=== PATIENT | female | born 1950 | race Caucasian/White ===

== ENCOUNTER → 2016-08-31 | Outpatient (CLI) | payer MEDICARE, OTHER ==
--- NOTE | 2016-09-02 10:14 | MM ---
Reason for exam: screening (asymptomatic). Last mammogram was performed 1 year and 1 month ago. History: Patient is postmenopausal and has history of colon cancer at age 57. Family history of breast cancer in maternal aunt, breast cancer in 2 maternal cousins, breast cancer in mother at age 70, and breast cancer in grandmother at age 70. Took hormonal contraceptives for 10 years. Took estrogen for 14 years. Took progesterone for 14 years. Physical Findings: A clinical breast exam by your physician is recommended on an annual basis and results should be correlated with mammographic findings. MG 3D Screening Mammo W/Cad Bilateral CC and MLO view(s) were taken. Prior study comparison: July 25, 2015, bilateral MG screening mammo w CAD. June 07, 2014, bilateral MG screening mammo w CAD. June 06, 2013, bilateral digital screening mammo w/CAD. There are scattered fibroglandular densities. There is chronic nodularity in the right breast. No significant changes when compared with prior studies. ASSESSMENT: Negative, BI-RAD 1 RECOMMENDATION: Routine screening mammogram of both breasts in 1 year.
== END | disposition home or self-care (01) ==
LOC: RADMAMWWP 12:51
PROVIDERS: ATTEND Internal Medicine
DX: Z12.31 Encounter for screening mammogram for malignant neoplasm of breast (principal)
CPT/HCPCS: 77063; G0202

== ENCOUNTER → 2017-10-21 | Outpatient (CLI) | payer MEDICARE, OTHER ==
--- NOTE | 2017-10-22 11:50 | MM ---
Reason for exam: screening (asymptomatic). Last mammogram was performed 1 year and 2 months ago. History: Patient is postmenopausal and has history of colon cancer at age 57. Family history of breast cancer in maternal aunt, breast cancer in 2 maternal cousins, breast cancer in mother at age 70, and breast cancer in grandmother at age 70. Took hormonal contraceptives for 10 years. Took estrogen for 14 years. Took progesterone for 14 years. Physical Findings: A clinical breast exam by your physician is recommended on an annual basis and results should be correlated with mammographic findings. MG 3D Screening Mammo W/Cad Bilateral CC and MLO view(s) were taken. Prior study comparison: August 31, 2016, bilateral MG 3d screening mammo w/cad. July 25, 2015, bilateral MG screening mammo w CAD. There are scattered fibroglandular densities. No suspicious abnormality. No significant changes when compared with prior studies. ASSESSMENT: Negative, BI-RAD 1 RECOMMENDATION: Routine screening mammogram of both breasts in 1 year.
== END ==
LOC: RADMAMWWP 12:52
PROVIDERS: ATTEND Internal Medicine
DX: Z12.31 Encounter for screening mammogram for malignant neoplasm of breast (principal)
CPT/HCPCS: 77063; 77067

== ENCOUNTER 2018-01-07 08:21 | Day surgery (SDC) | payer MEDICARE, OTHER ==
[2018-01-04 14:45] VITALS: BMI 25.3
[~2018-01-07 08:21] MED LIST: LACTATED RINGERS 1,000 ML IV SCH; LIDOCAINE 1% 20 ML VIAL (10MG/ML) FOR IV START INTRADERMA PRN
[2018-01-07 08:39] VITALS: TEMP 98.3
[2018-01-07] MEDS ORDERED: LACTATED RINGERS 1,000 ML IV ONE (08:44)
[2018-01-07] MEDS ORDERED: PROPOFOL 10 MG/ML 20 ML VIAL IV ONE (08:47)
[2018-01-07] MEDS ORDERED: LIDOCAINE 1% INJ 10MG/ML (20 ML MDV) ONE (08:47)
--- NOTE | 2018-01-07 08:52 | P.GSHP ---
History of Present Illness H&P Date: 01/07/18 Chief Complaint: Colon cancer screening Patient here today for colonoscopy. She has a history of colon cancer in the sigmoid colon 2006. Doing well now. No bowel complaints. Past Medical History Past Medical History: Cancer, Hyperlipidemia, Osteoarthritis (OA), Rheumatoid Arthritis (RA), Skin Disorder Additional Past Medical History / Comment(s): hx colon cancer, hx non hodgkins lymphome, eczema, History of Any Multi-Drug Resistant Organisms: None Reported Past Surgical History: Bowel Resection Additional Past Surgical History / Comment(s): colectomy, lipoma removed from top of rt shoulder, rx axillay lump biopsy, Past Anesthesia/Blood Transfusion Reactions: No Reported Reaction Smoking Status: Never smoker - Past Family History Mother Family Medical History: Cancer Additional Family Medical History / Comment(s): breast Father Family Medical History: Cancer Medications and Allergies Home Medications Medication Instructions Recorded Confirmed Type Atorvastatin [Lipitor] 40 mg PO DAILY 01/04/18 01/07/18 History Cetirizine HCl [Zyrtec] 10 mg PO DAILY 01/04/18 01/07/18 History Ergocalciferol (Vitamin D2) 50,000 unit PO SA 01/04/18 01/07/18 History [Vitamin D2] Folic Acid 1 mg PO DAILY 01/04/18 01/07/18 History Glucosam/Farshad-Msm1/C/Darion/Bosw 2 each PO DAILY 01/04/18 01/07/18 History [Glucosamine-Chondroitin Tablet] Meloxicam [Mobic] 7.5 mg PO DAILY 01/04/18 01/07/18 History Multivitamins, Thera [Multivitamin 1 tab PO DAILY 01/04/18 01/07/18 History (formulary)] Allergies Allergy/AdvReac Type Severity Reaction Status Date / Time Penicillins Allergy Rash/Hives Verified 01/07/18 08:41 Surgical - Exam Vital Signs Temp Pulse Resp BP Pulse Ox 98.3 F 93 18 146/98 98 01/07/18 08:38 01/07/18 08:38 01/07/18 08:38 01/07/18 08:38 01/07/18 08:38 Physical exam: General: Well-developed, well-nourished HEENT: Normocephalic, sclerae nonicteric Abdomen: Nontender, nondistended Extremities: No edema Neuro: Alert and oriented Assessment and Plan (1) Colon cancer screening Narrative/Plan: Will proceed with colonoscopy at this time Current Visit: Yes Status: Acute Code(s): Z12.11 - ENCOUNTER FOR SCREENING FOR MALIGNANT NEOPLASM OF COLON SNOMED Code(s): 942220098
--- NOTE | 2018-01-07 09:09 | P.PCN ---
Date of Procedure: 01/07/18 Procedure(s) Performed: PREOPERATIVE DIAGNOSIS: Colon cancer screening, personal history of colon cancer POSTOPERATIVE DIAGNOSIS: Descending colon polyp PROCEDURE: Colonoscopy with biopsy ANESTHESIA: MAC SURGEON: Piero Mcgill M.D. SPECIMENS: Descending colon polyp ENDOSCOPIC PROCEDURE: The patient was placed on the endoscopy table in the left decubitus position. The Olympus colonoscope was inserted into the anus and passed under direct visualization to the base of the cecum. The appendiceal orifice was visualized. From that point the scope was slowly withdrawn inspecting all surfaces carefully. There were no neoplastic inflammatory or polypoid lesions throughout the cecum, ascending, and transverse colon. In the descending colon there was noted be a small polyp that was removed using the cold biopsy forceps. The anastomosis between the descending colon and rectum was widely patent. No additional abnormalities were identified. There was no visible diverticulosis. Digital rectal examination was normal. The patient was taken to the recovery room in stable condition per anesthesia guidelines. RECOMMENDATIONS: Biopsy results. Follow-up colonoscopy in 5 years.
[2018-01-07 09:12] VITALS: RESP 16
[2018-01-07 09:26] VITALS: BP 120/78; PULSE 80
== END 2018-01-07 09:53 | disposition home or self-care (01) ==
LOC: ORWHC2ENDO 08:21
PROVIDERS: ATTEND Surgery
DX: Z12.11 Encounter for screening for malignant neoplasm of colon (principal); D12.4 Benign neoplasm of descending colon; Z85.038 Personal history of other malignant neoplasm of large intestine; E78.5 Hyperlipidemia, unspecified; M06.9 Rheumatoid arthritis, unspecified; Z85.72 Personal history of non-Hodgkin lymphomas; L30.9 Dermatitis, unspecified; Z79.82 Long term (current) use of aspirin; Z79.1 Long term (current) use of non-steroidal anti-inflammatories (NSAID); Z79.899 Other long term (current) drug therapy; Z87.891 Personal history of nicotine dependence; Z88.0 Allergy status to penicillin; Z88.8 Allergy status to other drugs, medicaments and biological substances
CPT/HCPCS: 88305; 45380; J2001; J2704

== ENCOUNTER → 2018-11-08 | Outpatient (CLI) | payer MEDICARE, OTHER ==
--- NOTE | 2018-11-09 14:55 | MM ---
Reason for exam: screening (asymptomatic). Last mammogram was performed 1 year and 1 month ago. History: Patient is postmenopausal, has history of colon cancer at age 57, and has history of other cancer at age 35. Family history of breast cancer in mother, breast cancer in maternal grandmother at age 70, breast cancer in maternal aunt, and breast cancer in 2 maternal cousins. Took hormonal contraceptives for 10 years. Took estrogen for 14 years. Took progesterone for 14 years. MG 3D Screening Mammo W/Cad Bilateral CC and MLO view(s) were taken. Prior study comparison: October 21, 2017, bilateral MG 3d screening mammo w/cad. August 31, 2016, bilateral MG 3d screening mammo w/cad. There are scattered fibroglandular densities. No suspicious abnormality. No significant new finding when compared with prior studies. ASSESSMENT: Negative, BI-RAD 1 RECOMMENDATION: Routine screening mammogram of both breasts in 1 year.
== END | disposition home or self-care (01) ==
LOC: RADMAMWWP 14:20
PROVIDERS: ATTEND Internal Medicine
DX: Z12.31 Encounter for screening mammogram for malignant neoplasm of breast (principal)
CPT/HCPCS: 77063; 77067

== ENCOUNTER → 2020-04-19 | Outpatient (CLI) | payer MEDICARE, OTHER ==
--- NOTE | 2020-04-22 09:30 | MM ---
Reason for exam: screening (asymptomatic). Last mammogram was performed 1 year and 5 months ago. History: Patient is postmenopausal, has history of colon cancer at age 57, and has history of other cancer at age 35. Family history of breast cancer in mother, breast cancer in maternal grandmother at age 70, breast cancer in maternal aunt, and breast cancer in 2 maternal cousins. Took hormonal contraceptives for 10 years. Took estrogen for 14 years. Took progesterone for 14 years. Physical Findings: A clinical breast exam by your physician is recommended on an annual basis and results should be correlated with mammographic findings. MG 3D Screening Mammo W/Cad Bilateral CC and MLO view(s) were taken. Prior study comparison: November 08, 2018, bilateral MG 3d screening mammo w/cad. October 21, 2017, bilateral MG 3d screening mammo w/cad. There are scattered fibroglandular densities. There is no discrete abnormality. ASSESSMENT: Negative, BI-RAD 1 RECOMMENDATION: Routine screening mammogram of both breasts in 1 year.
== END | disposition home or self-care (01) ==
LOC: RADMAMWWP 10:24
PROVIDERS: ATTEND Internal Medicine
DX: Z12.31 Encounter for screening mammogram for malignant neoplasm of breast (principal)
CPT/HCPCS: 77063; 77067

== ENCOUNTER → 2021-04-04 | Outpatient (CLI) | payer MEDICARE, OTHER ==
--- NOTE | 2021-04-04 10:59 | BD ---
EXAMINATION TYPE: Axial Bone Density DATE OF EXAM: 04/04/2021 COMPARISON: 08/19/2010 CLINICAL HISTORY: Height: 67 IN Weight: 183 LBS FRAX RISK QUESTIONS: Secondary Osteoporosis: 3. Menopause before 45: AGE 36 DUE TO CHEMO AND CANCER Rheumatoid Arthritis: YES RISK FACTORS HISTORY OF: Family History of Osteoporosis: YES MOTHER,GRANDMOTHER, AUNT, SELF Active: YES Postmenopausal woman: AGE 36 DUE TO CHEMO AND CANCER Take estrogen and/or progesterone medications: NOT NOW How long: TOOK FOR 10 YEARS MEDICATIONS: Additional Medications: MULTI VIT, FOLIC ACID, MALOXICAM, ARTHRITIS MEDS, CHOLESTEROL MEDS, VERTIGO M EDS, TYLENOL,LORATADINE Additional History: PT HAD NON-HODGKIN'S LYMPHOMA WITH CHEMO AND COLON CANCER WITH CHEMO EXAM MEASUREMENTS: Bone mineral densitometry was performed using the [employer] (now [employer] System. Bone mineral density as measured about the Lumbar spine is: ----- L1-L4(G/cm2): 1.543 T Score Values are as follows: ----- L2: 2.8 ----- L3: 2.4 ----- L4: 4.0 ----- L1-L4: 3.0 Bone mineral density has: Increased 9.6% since study of: 08/19/2010 Bone mineral density about the R hip (g/cm2): 0.868 Bone mineral density about the L hip (g/cm2): 0.940 T Score values are as follows: -----R Neck: -1.2 -----L Neck: -0.7 -----R Total: -1.2 -----L Total: -1.2 Bone mineral density has: Decreased -1.3% since study of: 08/19/2010 IMPRESSION: Osteopenia (T Score between -2.5 and -1) remains present. There remains slightly increased risk of fracture and the patient may be considered for treatment. Re-Screen 2-5 years. NOTE: T-SCORE=SD OF THE YOUNG ADULT MEAN.
== END | disposition home or self-care (01) ==
LOC: RADBDWWP 09:01
PROVIDERS: ATTEND Internal Medicine
DX: M85.89 Other specified disorders of bone density and structure, multiple sites (principal)
CPT/HCPCS: 77080

== ENCOUNTER 2021-05-06 10:26 | Emergency (ER) | payer MEDICARE, OTHER ==
--- NOTE | 2021-05-06 11:33 | XR ---
EXAMINATION TYPE: XR ankle complete RT DATE OF EXAM: 05/06/2021 COMPARISON: NONE HISTORY: 71-year-old female pain after fall TECHNIQUE: 3 views FINDINGS: Transverse fracture from the inferior tip of the medial malleolus distracted by 2 mm. Oblique fractur e distal fibula with minimal posterior displacement of 2 mm on the lateral view. Talar dome appears i ntact. Circumferential soft tissue swelling greatest anteriorly and laterally. Moderate-sized plantar heel spur. Subtalar joint is aligned. Smooth delineation to the Achilles tendon. Some degenerative s purring along the dorsal midfoot. IMPRESSION: Acute bimalleolar ankle fractures and soft tissue swelling.
--- NOTE | 2021-05-06 14:28 | ED ---
General Adult HPI - General Chief complaint: Extremity Injury, Lower Stated complaint: Fall/Rt ankle injury Time Seen by Provider: 05/06/21 12:40 Source: patient, RN notes reviewed Mode of arrival: wheelchair Limitations: no limitations - History of Present Illness Initial comments: 71-year-old female presents to the emergency room for a chief complaint of right ankle pain. Patient was walking down some snow we stairs to get her dog when she fell and inverted the ankle. Patient states it hurts to walk on. She did not hit her head or sustain other injuries. She does not take blood thinners. Patient does have a low-grade temperature of 100.5 noted on triage. She denies any symptoms related to this. Denies cough congestion. Has not had any fevers at home.Patient has no other complaints at this time including shortness of breath, chest pain, abdominal pain, nausea or vomiting, headache, or visual changes. - Related Data Home Medications Medication Instructions Recorded Confirmed Atorvastatin [Lipitor] 40 mg PO DAILY 01/04/18 05/06/21 Folic Acid 1 mg PO DAILY 01/04/18 05/06/21 Meloxicam [Mobic] 7.5 mg PO DAILY 01/04/18 05/06/21 Acetaminophen [Tylenol] 1,000 mg PO Q6H PRN 05/06/21 05/06/21 Ergocalciferol [Vitamin D2 (1250 1,250 mcg PO Q30D 05/06/21 05/06/21 Mcg = 44577 Iu)] Loratadine 10 mg PO DAILY 05/06/21 05/06/21 Meclizine [Antivert] 25 mg PO TID PRN 05/06/21 05/06/21 Allergies Allergy/AdvReac Type Severity Reaction Status Date / Time Penicillins Allergy Rash/Hives Verified 05/06/21 14:20 Review of Systems ROS Statement: Those systems with pertinent positive or pertinent negative responses have been documented in the HPI. ROS Other: All systems not noted in ROS Statement are negative. Past Medical History Past Medical History: Cancer, Hyperlipidemia, Osteoarthritis (OA), Rheumatoid Arthritis (RA), Skin Disorder Additional Past Medical History / Comment(s): hx colon cancer, hx non hodgkins lymphome, eczema, History of Any Multi-Drug Resistant Organisms: None Reported Past Surgical History: Bowel Resection Additional Past Surgical History / Comment(s): colectomy, lipoma removed from top of rt shoulder, rx axillay lump biopsy, Past Anesthesia/Blood Transfusion Reactions: No Reported Reaction Past Psychological History: No Psychological Hx Reported Smoking Status: Never smoker Past Alcohol Use History: Occasional Past Drug Use History: None Reported - Past Family History Mother Family Medical History: Cancer Additional Family Medical History / Comment(s): breast Father Family Medical History: Cancer General Exam Limitations: no limitations General appearance: alert, in no apparent distress Head exam: Present: atraumatic Eye exam: Present: normal appearance, PERRL, EOMI. Absent: scleral icterus, conjunctival injection, nystagmus ENT exam: Present: normal exam, mucous membranes moist Neck exam: Present: normal inspection, full ROM. Absent: tenderness Respiratory exam: Present: normal lung sounds bilaterally. Absent: respiratory distress, wheezes Cardiovascular Exam: Present: regular rate, normal rhythm, normal heart sounds Extremities exam: Present: tenderness (Tenderness noted to the medial and lateral malleolus. No foot tenderness.), normal capillary refill (Capillary refill less than 2 seconds, DP pulse 2+.), joint swelling (Mild edema noted of the right ankle.), other (Sensation intact right lower extremity.). Absent: calf tenderness Course Vital Signs 05/06/21 11:00 Temperature 100.5 F H Pulse Rate 101 H Respiratory 20 Rate Blood Pressure 156/89 O2 Sat by Pulse 96 Oximetry Procedures - Orthopedic Splinting/Casting Injury #1 Side: right Lower Extremity Injury Location: short leg Lower Extremity Immobilizer: posterior splint, stirrup splint Other Orthopedic Equipment: crutches Additional Comments: Neurovascular status intact after splint applied. Medical Decision Making - Medical Decision Making Vitals are stable. Mild temperature of 100.5. COVID-19 negative. Patient does not wish any other workup be performed for fever, she will watch this at home. Ankle x-ray reveals an acute bimalleolar ankle fracture and soft tissue swelling. Patient was placed in a posterior and stirrup splint and given crutches. Patient will be sent home with Tylenol 3. She will follow up with her doctor who works [facility]. She will return here for any worsening symptoms. - Lab Data Lab Results 05/06/21 Range/Units 12:58 Coronavirus (PCR) Not Detected (Not Detectd) Disposition Clinical Impression: Bimalleolar ankle fracture Disposition: HOME SELF-CARE Condition: Good Instructions (If sedation given, give patient instructions): Ankle Fracture (ED) Additional Instructions: Please take Tylenol 3 as needed for pain. Remain nonweightbearing and use crutches. Follow-up with your doctor. Return to the emergency room for any worsening symptoms. Is patient prescribed a controlled substance at d/c from ED?: No Referrals: Emily Tanner MD [Primary Care Provider] - 1-2 days Henry Mcallister DO [Doctor of Osteopathic Medicine] - 1-2 days Time of Disposition: 14:27
[2021-05-06 14:54] VITALS: BP 156/98; PULSE 107; RESP 18; TEMP 98.6
[2021-05-06] MEDS ORDERED: ACET/COD 300 MG/30 MG STARTER PACK 6 TAB BTL PO STA (14:57)
== END 2021-05-06 15:00 | disposition home or self-care (01) ==
LOC: EC 10:26
DX: S82.841A Displaced bimalleolar fracture of right lower leg, initial encounter for closed fracture (principal); W10.8XXA Fall (on) (from) other stairs and steps, initial encounter; Z88.0 Allergy status to penicillin; E78.5 Hyperlipidemia, unspecified; M19.90 Unspecified osteoarthritis, unspecified site; Z85.038 Personal history of other malignant neoplasm of large intestine
CPT/HCPCS: 29515; 87635; 99283

== ENCOUNTER → 2021-08-13 | Outpatient (CLI) | payer MEDICARE, OTHER ==
--- NOTE | 2021-08-15 11:42 | MM ---
Reason for exam: screening (asymptomatic). Last mammogram was performed 1 year and 4 months ago. History: Patient is postmenopausal, has history of colon cancer at age 57, and has history of other cancer at age 35. Family history of breast cancer in mother, breast cancer in maternal grandmother at age 70, breast cancer in maternal aunt, and breast cancer in 2 maternal cousins. Took hormonal contraceptives for 10 years. Took estrogen for 14 years. Took progesterone for 14 years. Physical Findings: A clinical breast exam by your physician is recommended on an annual basis and results should be correlated with mammographic findings. MG 3D Screening Mammo W/Cad Bilateral CC and MLO view(s) were taken. XCCL view(s) were taken of the left breast. Prior study comparison: April 19, 2020, bilateral MG 3d screening mammo w/cad. November 08, 2018, bilateral MG 3d screening mammo w/cad. There are scattered fibroglandular densities. There is no discrete abnormality. ASSESSMENT: Negative, BI-RAD 1 RECOMMENDATION: Routine screening mammogram of both breasts in 1 year.
== END | disposition home or self-care (01) ==
LOC: RADMAMWWP 15:23
PROVIDERS: ATTEND Internal Medicine
DX: Z12.31 Encounter for screening mammogram for malignant neoplasm of breast (principal); Z78.0 Asymptomatic menopausal state; Z80.3 Family history of malignant neoplasm of breast; Z85.038 Personal history of other malignant neoplasm of large intestine
CPT/HCPCS: 77063; 77067

== ENCOUNTER → 2021-08-19 | Outpatient (CLI) | payer MEDICARE, OTHER ==
[2021-08-19 12:09] LABS: Partial Thromboplastin Time 22.3 sec (22.0-30.0); Prothrombin Time 10.7 sec (9.0-12.0)
[2021-08-19 14:15] LABS: HCT 40.6 % (37.2-46.3); HGB 13.3 g/dL (12.0-15.0); MCHC 32.8 g/dL (32.0-37.0); MCV 97.6 fL (80.0-97.0); Mean Platelet Volume 10.2 fL (9.5-12.2); NRBC Per 100 WBC 0 /100 WBCS (0.0-0.0); Platelet Count 208 X 10*3/uL (140-440); RBC 4.16 X 10*6/uL (4.10-5.20); RDW 12.7 % (11.5-14.5); WBC 4.73 X 10*3/uL (4.50-10.00)
[2021-08-19 14:59] LABS: Albumin 4.6 g/dL (3.8-4.9); Albumin/Globulin Ratio 1.48 (1.60-3.17); BUN/Creat Ratio 27.86 Ratio (12.00-20.00); Blood Urea Nitrogen 19.5 mg/dL (9.0-27.0); Calcium 9.4 mg/dL (8.7-10.3); Globulin 3.1 g/dL (1.6-3.3); Non-African American GFR(CKD) 87.2 (60.0-200.0); Potassium 4.2 mmol/L (3.5-5.5); Total Bilirubin 0.4 mg/dL (0.30-1.20); Total Protein 7.7 g/dL (6.2-8.2)
== END | disposition home or self-care (01) ==
LOC: LABPAT 10:40
PROVIDERS: ATTEND Orthopaedic Surgery
DX: Z01.812 Encounter for preprocedural laboratory examination (principal)
CPT/HCPCS: 80053; 85027; 85610; 85730; 87070; 93005

== ENCOUNTER → 2021-08-19 | Outpatient (CLI) | payer MEDICARE, OTHER ==
[2021-08-19 14:59] LABS: Chol/HDL Ratio 3.96 Ratio; LDL Cholesterol,Calculated 137.8 mg/dL (0.0-131.0)
== END | disposition home or self-care (01) ==
LOC: LABWHC1 10:32
PROVIDERS: ATTEND Internal Medicine
DX: E78.00 Pure hypercholesterolemia, unspecified (principal)
CPT/HCPCS: 36415; 80061

== ENCOUNTER → 2021-11-17 | Outpatient (CLI) | payer MEDICARE, OTHER ==
[2021-11-17 13:16] LABS: INR 0.9 (<1.2); Prothrombin Time 10.4 sec (9.0-12.0)
[2021-11-17 13:25] LABS: Partial Thromboplastin Time 21.5 sec (22.0-30.0)
[2021-11-17 17:57] LABS: HGB 13.2 g/dL (12.0-15.0); MCH 31.8 pg (27.0-32.0); MCHC 32.2 g/dL (32.0-37.0); MCV 98.8 fL (80.0-97.0); Mean Platelet Volume 9.9 fL (9.5-12.2); NRBC Per 100 WBC 0 /100 WBCS (0.0-0.0); Platelet Count 211 X 10*3/uL (140-440); RBC 4.15 X 10*6/uL (4.10-5.20); RDW 12.7 % (11.5-14.5); WBC 5.19 X 10*3/uL (4.50-10.00)
[2021-11-17 18:03] LABS: Albumin 4.7 g/dL (3.8-4.9); Albumin/Globulin Ratio 1.57 (1.60-3.17); Anion Gap 10.3 mmol/L (10.00-18.00); Calcium 9.4 mg/dL (8.7-10.3); Carbon Dioxide 25.7 mmol/L (20.0-27.5); Non-African American GFR(CKD) 87.2 (60.0-200.0); Potassium 4.6 mmol/L (3.5-5.5); Total Bilirubin 0.4 mg/dL (0.30-1.20); Total Protein 7.7 g/dL (6.2-8.2)
[2021-11-17 22:38] LABS: Appearance,Urine Cloudy (Clear); Bilirubin,Urine Negative (Negative); Blood,Urine Negative (Negative); Color,Urine Yellow (Yellow); Ketones,Urine Negative (Negative); Nitrite,Urine Positive (Negative); PH, Urine 5.5 (5.0-8.0); Specific Gravity,Urine 1.012 (1.001-1.030); Urobilinogen,Urine 0.2 (0.2,1.0)
[2021-11-17 22:43] LABS: Bacteria,Urine 4+ /HPF (None Seen)
== END | disposition home or self-care (01) ==
LOC: LABPAT 11:28
PROVIDERS: ATTEND Orthopaedic Surgery
DX: Z01.812 Encounter for preprocedural laboratory examination (principal); M16.12 Unilateral primary osteoarthritis, left hip
CPT/HCPCS: 80053; 81001; 85027; 85610; 85730; 87070

== ENCOUNTER → 2022-11-10 | Outpatient (CLI) | payer MEDICARE, OTHER ==
--- NOTE | 2022-11-11 07:47 | MM ---
Reason for Exam: Screening (asymptomatic). Last mammogram was performed 1 year(s) and 3 month(s) ago. Patient History: Menarche at age 13. First Full-Term at age 26. Postmenopausal. Patient has history of breast feeding. Colorectal cancer, age 57. Patient used Estrogen for 14 years. Patient used Progesterone for 14 years. Patient used Hormonal Contraceptives for 10 years. Maternal grandmother had breast cancer, age 70. Maternal cousin had breast cancer. Maternal cousin had breast cancer. Maternal aunt had breast cancer. Mother had breast cancer. Risk Values: Estrella 5 year model risk: 3.5%. NCI Lifetime model risk: 8.8%. Prior Study Comparison: 11/08/2018 Bilateral Screening Mammogram, [facility]. 04/19/2020 Bilateral Screening Mammogram, [facility]. 08/13/2021 Bilateral Screening Mammogram, [facility]. Tissue Density: There are scattered fibroglandular densities. Findings: Analyzed By CAD. There is no suspicious group of microcalcifications or new suspicious mass in either breast. Stable chronic nodularity within both breasts. Overall Assessment: Benign, BI-RAD 2 Management: Screening Mammogram of both breasts in 1 year. A clinical breast exam by your physician is recommended on an annual basis and results should be correlated with mammographic findings. Note on Estrella scores and lifetime risk: 1. A Estrella score greater than 3% is considered moderate risk. If this is the case, consider specialist referral to assess eligibility for a risk reducing agent. If overall lifetime risk for the development of breast cancer is 20% or higher, the patient may qualify for future screening with alternating mammogram and breast MRI. Electronically signed and approved by: Qasim Arora D.O.
== END | disposition home or self-care (01) ==
LOC: RADMAMWWP 14:01
PROVIDERS: ATTEND Internal Medicine
DX: Z12.31 Encounter for screening mammogram for malignant neoplasm of breast (principal); Z78.0 Asymptomatic menopausal state; Z80.3 Family history of malignant neoplasm of breast
CPT/HCPCS: 77063; 77067

== ENCOUNTER → 2023-02-10 | Outpatient (CLI) | payer MEDICARE, OTHER ==
[2023-02-10 13:23] LABS: Partial Thromboplastin Time 22.2 sec (22.0-30.0); Prothrombin Time 10.6 sec (10.0-12.5)
[2023-02-10 16:21] LABS: ALT 23 U/L (8-44); AST 21 U/L (13-35); Albumin 4.8 d/dL (3.8-4.9); Albumin/Globulin Ratio 1.71 Ratio (1.60-3.17); Alkaline Phosphatase 86 U/L (41-126); BUN/Creat Ratio 31.43 Ratio (12.00-20.00); Calcium 9.8 mg/dL (8.7-10.3); Carbon Dioxide 26.5 mmol/L (21.6-31.8); Chloride 99 mmol/L (96-109); Globulin 2.8 d/dL (1.6-3.3); Glucose 82 mg/dL (70-110); Potassium 4.6 mmol/L (3.5-5.5); Sodium 138 mmol/L (135-145); Total Bilirubin 0.4 mg/dL (0.3-1.2); Total Protein 7.6 d/dL (6.2-8.2)
[2023-02-10 16:30] LABS: HCT 42.5 % (37.2-46.3); HGB 14.1 d/dL (12.0-15.0); MCH 32.6 pg (27.0-32.0); MCHC 33.2 d/dL (32.0-37.0); MCV 98.4 FL (80.0-97.0); Mean Platelet Volume 9.8 FL (9.5-12.2); NRBC Per 100 WBC 0 X 10*3/uL (0.00-0.01); Platelet Count 228 X 10*3/uL (140-440); RBC 4.32 X 10*6/uL (4.10-5.20); RDW 12.5 % (11.5-14.5); WBC 6.17 X 10*3/uL (4.50-10.00)
== END | disposition home or self-care (01) ==
LOC: LABPAT 11:58
PROVIDERS: ATTEND Orthopaedic Surgery
DX: Z01.818 Encounter for other preprocedural examination (principal); M16.11 Unilateral primary osteoarthritis, right hip
CPT/HCPCS: 36415; 80053; 85027; 85610; 85730; 86850; 86900; 86901; 87070; 93005

== ENCOUNTER 2023-02-19 05:32 | Day surgery (SDC) | payer MEDICARE, OTHER ==
[~2023-02-19 05:32] MED LIST changes: -LACTATED RINGERS 1,000 ML IV SCH; -LIDOCAINE 1% 20 ML VIAL (10MG/ML) FOR IV START INTRADERMA PRN; +ROPIVACAINE/EPI/CLONIDINE/KET 50 ML SYRINGE MISCELLANE PRN
[2023-02-19] MEDS ORDERED: TRANEXAMIC 1,000 MG/100ML-NACL 1,000 MG in SALINE 1 100ML.BAG IV PRN (06:00)
[2023-02-19] MEDS ORDERED: ACETAMINOPHEN TAB 500 MG TAB PO PRN (06:00)
[2023-02-19] MEDS ORDERED: DEXAMETHASONE SOD PHOSPHATE 10 MG/ML 1 ML VIAL IV PRN (06:00)
[2023-02-19] MEDS ORDERED: FAMOTIDINE 20 MG/2 ML VIAL IVP PRN (06:00)
[2023-02-19] MEDS ORDERED: oxyCODONE ER 10 MG TAB.ER.12H PO PRN (06:00)
[2023-02-19] MEDS ORDERED: ONDANSETRON 4 MG/2 ML VIAL IVP PRN ×2 (06:00→15:20)
[2023-02-19] MEDS ORDERED: DOCUSATE 100 MG CAP PO PRN (06:00)
[2023-02-19] MEDS ORDERED: KETOROLAC 15 MG/ML 1 ML VIAL IVP PRN (06:00)
[2023-02-19] MEDS ORDERED: TRANEXAMIC 1,000 MG/100ML-NACL 1,000 MG in SALINE 1 100ML.BAG IVPB PRN (06:00)
[2023-02-19] MEDS ORDERED: DEXAMETHASONE SOD PHOSPHATE 4 MG/ML 1 ML VIAL IVP ONE (06:50)
[2023-02-19] MEDS ORDERED: MIDAZOLAM 2 MG/2 ML VIAL IV PRN (07:00)
[2023-02-19] MEDS: LACTATED RINGERS 1,000 ML IV SCH (07:01)
--- NOTE | 2023-02-19 07:19 | P.ANPRN ---
Procedure Note - Anesthesia - Nerve Block Performed Right Damaso Single Time Out Performed: Yes Date of Procedure: 02/19/23 Procedure Start Time: 06:55 Procedure Stop Time: 07:03 Location of Patient: PreOp Indication: Acute Post-Operative Pain, Requested by Surgeon Sedation Type: Sedate with meaningful contact maintained Preparation: Sterile Prep Position: Supine Needle Types: Pajunk Needle Gauge: 21 Ultrasound used to visualize needle placement: Yes Ultrasound used to observe medication spread: Yes Injectate: 0.5% Ropivacaine (see comment for volume) (15 ml + 15 ml NS + 4 mg Dexamethasone) Blood Aspirated: No Pain Paresthesia on Injection Noted: No Resistance on Injection: Normal Image Stored and Saved: Yes Events: Uneventful and Well Tolerated
[2023-02-19] MEDS ORDERED: SODIUM CHLORIDE 0.9% (PF) 10 ML VIAL ONE (07:25)
[2023-02-19] MEDS ORDERED: LIDOCAINE 1% INJ 10MG/ML (20 ML MDV) ONE (07:25)
[2023-02-19] MEDS ORDERED: PROPOFOL 10 MG/ML 20 ML VIAL IV ONE (07:25)
[2023-02-19] MEDS ORDERED: ROPIVACAINE 5 MG/ML 30 ML VIAL ONE (07:25)
[2023-02-19] MEDS ORDERED: TRANEXAMIC 1,000 MG/100ML-NACL PREMIX BAG ONE (07:25)
[2023-02-19] MEDS ORDERED: SUCCINYLCHOLINE CHLORIDE 200 MG/10 ML VIAL IV ONE (07:25)
[2023-02-19] MEDS ORDERED: fentaNYL (PF) 50 MCG/ML 2 ML AMP ONE (07:25)
[2023-02-19] MEDS ORDERED: ROCURONIUM 10 MG/ML (5 ML VIAL) IV ONE (07:25)
[2023-02-19] MEDS ORDERED: NEOSTIGMINE 1 MG/ML 10 ML VIAL ONE (07:25)
[2023-02-19] MEDS ORDERED: KETAMINE HCL IN 0.9 % NACL 50 MG/5 ML SYRINGE ONE (07:25)
[2023-02-19] MEDS ORDERED: GLYCOPYRROLATE 0.2 MG/ML 2 ML VIAL ONE (07:25)
[2023-02-19] MEDS ORDERED: ePHEDrine 50 MG/ML 1 ML VIAL ONE (07:25)
[2023-02-19] MEDS ORDERED: EPINEPHrine 2 MG in SODIUM CHLORIDE 0.9% 200 ML IV ONE (08:15)
[2023-02-19] MEDS ORDERED: LACTATED RINGERS 1,000 ML IV ONE (08:47)
--- NOTE | 2023-02-19 09:51 | XR ---
Intraoperative/procedural fluoroscopic services were provided for total right hip arthroplasty. Total fluoroscopy time is 51.3 seconds with a total of 8 submitted images to PACS. Total DAP 2.7625 Gycm2. Please see the operative note for further details.
[2023-02-19] MEDS: HYDROmorphone 0.5 MG/0.5 ML SYRINGE IVP PRN ×3 (10:09→10:36)
[2023-02-19] MEDS ORDERED: MAGNESIUM HYDROXIDE 2,400 MG/30 ML CUP PO PRN (10:12)
[2023-02-19] MEDS ORDERED: HYDROmorphone 0.5 MG/0.5 ML SYRINGE IVP PRN (10:12)
[2023-02-19] MEDS ORDERED: NALOXONE 0.4 MG/ML 1 ML VIAL IV PRN (10:12)
[2023-02-19] MEDS ORDERED: HYDROcodone/APAP 5-325MG 1 EACH TAB PO PRN (10:12)
[2023-02-19] MEDS ORDERED: hydrOXYzine pamoate 25 MG CAP PO PRN (10:12)
--- NOTE | 2023-02-19 10:12 | P.OP ---
Date of Procedure: 02/19/23 Preoperative Diagnosis: 1. Severe right hip osteoarthritis 2. History of non-Hodgkin's lymphoma and colon cancer 3. Osteopenia Postoperative Diagnosis: Same Procedure(s) Performed: Right direct anterior total hip arthroplasty Implants: 1. Rohit Trident II Acetabular Cup, Size #52 2. Rohit Accolade C Size # 4 Femoral Stem, Standard Offset 3. Biolox delta femoral head, 36 mm, +0 neck Anesthesia: RAUL, regional Surgeon: Ezequiel Luna Estimated Blood Loss (ml): 200 IV fluids (ml): 1,000 Pathology: none sent Condition: stable Disposition: PACU Indications for Procedure: I had a long discussion with the patient in the office on the potential risks and complications of an elective total hip replacement through a direct anterior approach. Risks discussed include, but are certainly not limited to, risks from anesthesia, superficial infection requiring local wound care or antibiotics, deep adan-prosthetic joint infection and the treatment required to eradicate infection, intraoperative fracture, postoperative periprosthetic fracture, damage to local blood vessels or nerves particularly the lateral femoral cutaneous nerve, delayed wound healing requiring local wound care or possibly surgical debridement, hip dislocation, leg length discrepancy, soft tissue irritation around the total hip implant such as iliopsoas tendinitis or trochanteric bursitis, wear and osteolysis from the implants, squeaking or a udible noises, groin pain, thigh pain, heterotopic ossification, stiffness, aseptic loosening of the implants, dissatisfaction with surgical outcome, need for revision surgery, DVT, PE, swelling of the operative extremity, acute coronary event, stroke, failure to thrive, and possibly loss of life or limb. The patient understands that while these are the most common complications after an elective hip replacement there are certainly other less common complications possible. They were given ample time to ask questions regarding the potential complications of a hip replacement. Following our discussion the patient provided their verbal and written consent to go forward with an elective total hip replacement. Operative Findings: Severe right hip osteoarthritis Description of Procedure: The patient was identified in the preoperative holding area and the correct hip was marked with my initials. I reviewed the procedure and consent with the patient. All of their questions were answered. The patient was then brought back into the operating room by anesthesia. While on the [facility] anesthesia was administered by the anesthesia team. Preoperative antibiotics and tranexamic acid were also given. After the patient was under anesthesia I examined their ankles to determine their preoperative leg length discrepancy. The skin over the anterior aspect of the hip was shaved to remove hair over the site of planned incision. Both feet and ankles were padded with webril and boots for the Austin were applied. The patient was then carefully transferred onto the Austin table. A perineal post was immediately placed. The arms were placed on arm holders and were well-padded. Both boots were secured to the spars on the Austin table. The patient was positioned so that the pelvis was centered over the post. Nonsterile drapes were applied. A timeout was performed identifying the correct patient, operative extremity, and procedure. At this point fluoroscopy was brought in to take preoperative images of the pelvis and operative hip. Using the standing AP pelvis from the office as a template, a comparable image was obtained with fluoroscopy. A metallic bar was used to create a bi-ischial line for use as a reference to leg length adjustments during the procedure. Global offset was also measured on both the operative and nonoperative leg. Fluoroscopy was then brought out and a pre-scrub using a chlorhexidine scrub brush was performed. The operative limb was then prepped and draped in the standard sterile fashion. An anterior longitudinal incision was made lateral and distal to the ASIS. The skin and subcutaneous tissues were incised sharply. The underlying tensor fascia was identified and incised in its midportion. The fascia was dissected free from the underlying muscle and the muscle belly was retracted. A blunt tipped cobra retractor was placed over the superior neck under the muscle fibers of the gluteus minimus. The deep enveloping fascia of the tensor was incised. The anterior leash of vessels were then identified and cauterized. The fascia between the rectus and the capsule was then incised and the pre-capsular fat was excised. A second Cobra was placed inferior to the neck. The interval between the rectus and iliocapsularis and the hip capsule was developed and a retractor was placed carefully over the anterior rim of the acetabulum. A T-shaped anterior capsulotomy was performed. The superior capsular leaflet was left in place in the inferior capsular flap was excised. The Cobra retractors were placed intracapsularly. We then made a femoral neck osteotomy according to preoperative and intraoperative templating and confirmed the level of the osteotomy using fluoroscopic imaging. The femoral head was removed, passed off to the back table, and sized. The superior capsular flap was excised. Retractors were placed circumferentially exposing the acetabulum. We then circumferentially debrided the acetabulum free of labrum and osteophytes. The pulvinar was removed to fully visualize the cotyloid fossa. We then sequentially reamed to achieve peripheral fit and excellent bleeding subchondral bone. The socket was thoroughly irrigated. The acetabular component was impacted into the appropriate position using fluoroscopy to guide version, inclination, and depth of insertion taking care to have a comparable image of the AP pelvis to the standing image taken in the office. An excellent press-fit was achieved and final position was confirmed using fluoroscopy. The press fit was augmented with bony cancellus dome screws. The liner was then impacted into the socket. Attention was then turned to the femur. The remnant dorsal lateral capsule was excised. The short external rotators were visible and protected. A bone hook was used to confirm appropriate translation of the trochanter away from the acetabulum. The leg was then extended and adducted and the bone hook was used to elevate the femur for broaching. On inspection of the patient's proximal femur, they appeared to have poor bone quality so I elected to proceed with cemented fixation of the femoral component. A box osteotome and blunt tipped canal sound was then utilized to gain access to the femoral canal. We then sequentially broached the femur in appropriate anteversion until torsional st ability was achieved and the implant was felt to have reached the appropriate size to allow trialing. The neck cut was brought flush to the trial broach with a calcar planar. A trial neck and head were then placed onto the broach and the hip was atraumatically reduced under direct visualization. External rotation to 90 was performed to assess stability. Fluoroscopy was brought in. An AP and lateral fluoroscopic image of the proximal femur was obtained to assess position and fill of the trial broach. An AP of the pelvis was then obtained and matched to the preoperative image taken. A bi-ischial bar was then placed and measurements were taken to assess changes in length and offset. The hip was then carefully dislocated, the proximal femur was exposed, and the trial implants were removed. The proximal femur was then prepared for cementing. The canal was thoroughly irrigated with pulsatile lavage to remove blood and marrow contents. A cement restrictor was placed to a depth just distal to the tip of the final implant. Epinephrine-soaked gauze was then packed into the proximal femur. 2 bags of cement were then mixed using a centrifuge and placed into a cement gun. Anesthesia was notified that cementing was about to commence to make sure the patient was appropriately ventilated and hydrated. Once the cement had reached appropriate consistency, the cement gun was used to fill the canal in a retrograde fashion starting at the restrictor. Cement was then pressurized into the canal with a blue tipped timber girdler. The stem was then carefully introduced into the cement taking care to guide the implant into appropriate version. The stem was held in position until the cement had fully set. All extra cement was removed while the cement was hardening. The trunnion was cleansed and the final head was tapped into place to engage the Perdomo taper. The acetabulum was irrigated and visualized to be free of debris. The hip was carefully reduced. Stability was checked clinically with external rotation to 90 and there was no evidence of instability. Final fluoroscopic images were taken. The wound was then thoroughly irrigated and soaked with a dilute Betadine rinse for 3 minutes. 3 L of sterile saline was irrigated through the wound using pulsatile lavage. Local anesthetic cocktail was injected into the soft tissues around the surgical field. A deep drain was placed. The wound was then closed in layers. A sterile dressing was placed over the surgical incision and drain site. The drapes were taken down and the patient was carefully transferred off of the Austin table. Following removal of the boots the leg lengths felt acceptable. The patient was then taken to recovery room having tolerated the procedure well. PLAN: The patient can weight-bear as tolerated on the operative extremity. 2 doses of postoperative antibiotics. DVT prophylaxis with aspirin 81 mg twice a day based on preoperative risk stratification. Physical therapy for gait training. Discontinue drain postoperative day #1 if output is less than 100 mL per shift.
[2023-02-19] MEDS: SODIUM CHLORIDE 0.9% 1,000 ML IV SCH ×2 (10:47→18:24)
--- NOTE | 2023-02-19 17:40 | P.CONS ---
History of Present Illness - Reason for Consult Consult date: 02/19/23 Medical management - Chief Complaint Severe right hip osteoarthritis - History of Present Illness 72-year-old male patient with history of hyperlipidemia, rheumatoid arthritis, seasonal ALLERGIES, severe right hip osteoarthritis, osteopenia, non-Hodgkin's lymphoma and colon cancer, admitted to the hospital for elective right total hip replacement through a direct anterior approach Patient is status post right total hip replacement, POD #0 Internal medicine is consulted for postoperative medical management Review of Systems REVIEW OF SYSTEMS: CONSTITUTIONAL: No fever, no malaise, no fatigue. HEENT: No recent visual problems or hearing problems. Denied any sore throat. CARDIOVASCULAR: No chest pain, orthopnea, PND, no palpitations, no syncope. PULMONARY: No shortness of breath, no cough, no hemoptysis. GASTROINTESTINAL: No diarrhea, no nausea, no vomiting, no abdominal pain. NEUROLOGICAL: No headaches, no weakness, no numbness. HEMATOLOGICAL: Denies any bleeding or petechiae. GENITOURINARY: Denies any burning micturition, frequency, or urgency. MUSCULOSKELETAL/RHEUMATOLOGICAL: Denies any joint pain, swelling, or any muscle pain. ENDOCRINE: Denies any polyuria or polydipsia. The rest of the 14-point review of systems is negative. Past Medical History Past Medical History: Cancer, Hyperlipidemia, Osteoarthritis (OA), Rheumatoid Arthritis (RA), Skin Disorder Additional Past Medical History / Comment(s): hx colon cancer 15 yrs. ago-had surg., hx non hodgkins lymphoma-had chemo years ago, skin cancer, eczema, wears pessary History of Any Multi-Drug Resistant Organisms: None Reported Past Surgical History: Bowel Resection, Joint Replacement Additional Past Surgical History / Comment(s): colectomy, lipoma removed from top of rt shoulder, rt axillary lump biopsy, colonoscopy, left hip replaced, basal cell skin cancer from face Past Anesthesia/Blood Transfusion Reactions: No Reported Reaction Smoking Status: Former smoker - Past Family History Mother Family Medical History: Cancer Additional Family Medical History / Comment(s): breast Father Family Medical History: Cancer Medications and Allergies Home Medications Medication Instructions Recorded Confirmed Type Folic Acid 1 mg PO DAILY 01/04/18 02/19/23 History Meloxicam [Mobic] 7.5 mg PO BID 01/04/18 02/19/23 History Acetaminophen [Tylenol] 1,000 mg PO Q6H PRN 05/06/21 02/19/23 History Ergocalciferol [Vitamin D2 (1250 1,250 mcg PO WEEKLY 05/06/21 02/19/23 History Mcg = 65412 Iu)] Loratadine 10 mg PO DAILY 05/06/21 02/19/23 History Meclizine [Antivert] 25 mg PO TID PRN 05/06/21 02/19/23 History Multivitamins, Thera [Multivitamin 1 tab PO DAILY 11/21/21 02/19/23 History (formulary)] Allergies Allergy/AdvReac Type Severity Reaction Status Date / Time Penicillins Allergy Rash/Hives Verified 02/19/23 06:27 diclofenac [From Voltaren] AdvReac short of Verified 02/19/23 06:27 breath ezetimibe [From Zetia] AdvReac leg cramps Verified 02/19/23 06:27 Physical Exam Vitals: Vital Signs Temp Pulse Resp BP Pulse Ox 02/19/23 12:13 97.6 F 80 113/64 95 02/19/23 11:12 62 16 112/55 98 02/19/23 10:57 57 L 16 116/53 97 02/19/23 10:42 68 16 116/57 98 02/19/23 10:27 72 16 114/59 96 02/19/23 10:12 60 16 116/55 98 02/19/23 09:57 97 F L 98 12 135/63 98 02/19/23 07:03 88 16 169/85 97 02/19/23 06:30 98.1 F 93 16 202/107 97 Intake and Output 02/18/23 02/19/23 02/19/23 22:59 06:59 14:59 Intake Total 1501 Output Total 200 Balance 1301 Intake: IV 1501 Output: Estimated Blood Loss 200 Other: Weight 86.3 kg - Constitutional General appearance: Present: average body habitus, cooperative, no acute distress - EENT Eyes: Present: anicteric sclerae, EOMI, PERRLA, normal appearance ENT: Present: hearing grossly normal, normal oropharynx Ears: bilateral: normal - Neck Neck: Present: normal ROM. Absent: lymphadenopathy, rigidity, thyromegaly Carotids: negative: bruit present Thyroid: bilateral: normal size, negative: enlarged, nodule - Respiratory Respiratory: bilateral: CTA, negative: rales, rhonchi, wheezing - Cardiovascular Rhythm: regular Heart sounds: normal: S1, S2 Abnormal Heart Sounds: Absent: systolic murmur, diastolic murmur - Gastrointestinal General gastrointestinal: Present: normal bowel sounds, soft. Absent: distended, organomegaly, tenderness - Genitourinary Genitourinary Comment(s): deferred - Integumentary Integumentary: Present: normal turgor. Absent: jaundiced, rash, ulcer - Neurologic Neurologic: Present: CNII-XII intact. Absent: focal deficits - Musculoskeletal Musculoskeletal: Present: gait normal, strength equal bilaterally - Psychiatric Psychiatric: Present: A&O x's 3, appropriate affect, intact judgment & insight Assessment and Plan Assessment: 1. Severe osteoarthritis right hip; status post elective right total hip arthroplasty - POD #0; patient reports adequate pain control with hydrocodone 10 mg every 6 hours when necessary with IV Dilaudid for breakthrough pain - Patient has received prophylactic dose of antibiotic cefazolin 2 g IV every 8 hours 2 - DVT prophylaxis with aspirin 81 mg twice a day 2. Severe DJD/rheumatoid arthritis ; continue with home anti-inflammatory therapy at time of discharge 3. Vitamin D deficiency; vitamin D 50,000 units weekly 4. Seasonal ALLERGIES; loratadine 10 mg daily DVT prophylaxis; aspirin 81 mg twice a day CODE STATUS; full code
[2023-02-19] MEDS ORDERED: SENNOSIDES-DOCUSATE SODIUM 1 EACH TAB PO SCH (21:00)
[2023-02-19] MEDS: HYDROcodone/APAP 10-325MG 1 EACH TAB PO PRN (21:39)
[2023-02-19] MEDS: ASPIRIN 81 MG PO SCH (22:49)
[2023-02-20] MEDS: LACTATED RINGERS 1,000 ML IV SCH (00:25)
[2023-02-20] MEDS: SODIUM CHLORIDE 0.9% 1,000 ML IV SCH (00:43)
--- NOTE | 2023-02-20 08:08 | P.PN ---
Subjective Progress Note Date: 02/20/23 Patient was seen at bedside this morning and is doing well. She has mild discomfort in her thigh but otherwise minimal pain. She's been on several times to walk to the bathroom. She denies chest pain or shortness of breath. Objective - Vital Signs Vital signs: Vital Signs Temp 98.6 F 02/20/23 01:04 Pulse 89 02/20/23 01:04 Resp 20 02/20/23 01:04 BP 125/69 02/20/23 01:04 Pulse Ox 94 L 02/20/23 01:04 FiO2 Intake & Output 02/19/23 02/20/23 02/20/23 18:59 06:59 18:59 Intake Total 1501 Output Total 420 280 Balance 1081 -280 Weight 86.3 kg Intake: IV 1501 Output: Drainage 70 80 Right Hip 70 80 Urine 150 200 Estimated Blood Loss 200 Other: Voiding Method Toilet # Voids 4 - Exam Patient is sitting up comfortably in bed. She is alert and able to answer questions. A focused examination of the right lower extremity was conducted. On inspection she has a clean-appearing surgical dressing in place with no drainage or strike through. Her Hemovac was removed. Her thigh is soft. Femoral nerve function is intact. Distally she is able to actively plantarflex and dorsiflex her ankle and her toes. Assessment and Plan Assessment: Postoperative day #1 status post right direct anterior total hip arthroplasty Rheumatoid arthritis History of colon cancer and non-Hodgkin's lymphoma Plan: 1. Weight-bear as tolerated right lower extremity, up with the assistance of a walker 2. DVT prophylaxis with aspirin 81 mg twice a day 4 weeks 3. 2 doses of postoperative antibiotics 4. Internal medicine for perioperative medical management 5. Physical therapy 6. Dispo: Patient would like to discharge home later this morning. She is okay to discharge once her pain is controlled and she passes physical therapy. Due to the hospital pharmacy being closed over the weekend her medications were sent to our office in EMR her home pharmacy [facility] in [place].
--- NOTE | 2023-02-20 08:09 | P.DS ---
Providers Date of admission: 02/19/2023 Attending physician: Ezequiel Luna Consults: 02/19/23 10:12 Consult Physician Routine Consulting Provider: Ciro Julian Consult Reason/Comments: post op medical management Do you want consulting provider notified?: Yes Primary care physician: Stated None Hospital Course: Patient is very pleasant 72-year-old female was admitted under my care yesterday. She was taken to the operating room where an uncomplicated right total hip placement was performed. Following surgery she was transferred to the orthopedic floor. She was transitioned from IV to oral pain medications. She received 2 doses of postoperative antibiotics. She worked with physical therapy and did well. Her drain was pulled on postoperative day #1. She is openly cleared for discharge home. Plan - Discharge Summary Discharge Rx Participant: Yes New Discharge Prescriptions: No Action Folic Acid 1 mg PO DAILY Meloxicam [Mobic] 7.5 mg PO BID Ergocalciferol [Vitamin D2 (1250 Mcg = 68049 Iu)] 1,250 mcg PO WEEKLY Meclizine [Antivert] 25 mg PO TID PRN PRN Reason: Vertigo Acetaminophen [Tylenol] 1,000 mg PO Q6H PRN PRN Reason: Fever And/ Or Pain Multivitamins, Thera [Multivitamin (formulary)] 1 tab PO DAILY Loratadine 10 mg PO DAILY Discharge Medication List Folic Acid 1 mg PO DAILY 01/04/18 [History] Meloxicam [Mobic] 7.5 mg PO BID 01/04/18 [History] Acetaminophen [Tylenol] 1,000 mg PO Q6H PRN 05/06/21 [History] Ergocalciferol [Vitamin D2 (1250 Mcg = 01899 Iu)] 1,250 mcg PO WEEKLY 05/06/21 [History] Loratadine 10 mg PO DAILY 05/06/21 [History] Meclizine [Antivert] 25 mg PO TID PRN 05/06/21 [History] Multivitamins, Thera [Multivitamin (formulary)] 1 tab PO DAILY 11/21/21 [History] Follow up Appointment(s)/Referral(s): [facility] [NON-STAFF] - As Needed Ezequiel Luna MD [Medical Doctor] - 2 Weeks Activity/Diet/Wound Care/Special Instructions: 1. Weight-bear as tolerated on your operative extremity unless instructed otherwise. Use a walker or other assistive device to ambulate. 2. Leave surgical dressing in place. If your dressing becomes saturated with blood, there is drainage, or the dressing becomes loose please contact the office. 3. It is okay to shower with your surgical dressing, but do not submerge in water (no hot tubs, bath's, swimming etc.) 4. Make sure to take her blood clot prevention medication as prescribed (aspirin, Eliquis, Xarelto, and Plavix are commonly prescribed medications for blood clot prevention) 5. While taking [place] or Percocet for pain make sure you're taking a stool softener (Colace) and drink lots of water. 6. Keep all follow-up appointments as scheduled. You will usually be seen in 1-2 weeks following surgery. 7. Please contact the office with any questions or concerns [phone] Discharge Disposition: HOME SELF-CARE
[2023-02-20 08:58] VITALS: BP 103/63; PULSE 79; RESP 19; TEMP 97.7
[2023-02-20] MEDS ORDERED: MULTIVITAMINS, THERA 1 EACH TAB PO SCH (09:00)
[2023-02-20] MEDS ORDERED: FAMOTIDINE 20 MG TAB PO SCH (09:00)
[2023-02-20] MEDS ORDERED: FOLIC ACID 1 MG TAB PO SCH (09:00)
[2023-02-20] MEDS ORDERED: LORATADINE 10 MG TAB PO SCH (09:00)
[2023-02-20 09:02] LABS: Basophils % (A) 0 %; Eosinophils % (A) 0 %; HCT 32.9 % (34.0-46.0); HGB 10.9 gm/dL (11.4-16.0); Lymphocytes # (A) 1.5 k/uL (1.0-4.8); Lymphocytes % (A) 18 %; MCH 33.2 pg (25.0-35.0); MCHC 33.3 g/dL (31.0-37.0); MCV 99.9 fL (80.0-100.0); Mean Platelet Volume 7.5; Monocytes # (A) 0.4 k/uL (0-1.0); Monocytes % (A) 5 %; Neutrophils # (A) 6.7 k/uL (1.3-7.7); Neutrophils % (A) 77 %; Platelet Count 163 k/uL (150-450); RBC 3.29 m/uL (3.80-5.40); RDW 12.3 % (11.5-15.5); WBC 8.7 k/uL (3.8-10.6)
[2023-02-20] MEDS: HYDROcodone/APAP 10-325MG 1 EACH TAB PO PRN (09:11)
[2023-02-20 09:14] LABS: African American GFR (CKD) >90 (>60 ml/min/1.73 sqM); Anion Gap 7 mmol/L; Blood Urea Nitrogen 17 mg/dL (7-17); Calcium 8.5 mg/dL (8.4-10.2); Carbon Dioxide 25 mmol/L (22-30); Chloride 108 mmol/L (98-107); Glucose 107 mg/dL (74-99); Non-African American GFR(CKD) >90 (>60 ml/min/1.73 sqM); Potassium 4.2 mmol/L (3.5-5.1); Sodium 140 mmol/L (137-145)
[2023-02-20] MEDS: ASPIRIN 81 MG PO SCH (10:00)
--- NOTE | 2023-02-20 17:31 | P.PN ---
Subjective Progress Note Date: 02/20/23 72-year-old male patient with history of hyperlipidemia, rheumatoid arthritis, seasonal ALLERGIES, severe right hip osteoarthritis, osteopenia, non-Hodgkin's lymphoma and colon cancer, admitted to the hospital for elective right total hip replacement through a direct anterior approach Patient is status post right total hip replacement, POD #0 Internal medicine is consulted for postoperative medical management Objective - Vital Signs Vital signs: Vital Signs Temp 97.7 F 02/20/23 06:59 Pulse 79 02/20/23 06:59 Resp 19 02/20/23 06:59 BP 103/63 02/20/23 06:59 Pulse Ox 97 02/20/23 08:34 FiO2 Intake & Output 02/19/23 02/20/23 02/20/23 18:59 06:59 18:59 Intake Total 1501 Output Total 420 280 Balance 1081 -280 Weight 86.3 kg Intake: IV 1501 Output: Drainage 70 80 Right Hip 70 80 Urine 150 200 Estimated Blood Loss 200 Other: Voiding Method Toilet # Voids 4 - Exam - Constitutional General appearance: Present: average body habitus, cooperative, no acute distress - EENT Eyes: Present: anicteric sclerae, EOMI, PERRLA, normal appearance ENT: Present: hearing grossly normal, normal oropharynx Ears: bilateral: normal - Neck Neck: Present: normal ROM. Absent: lymphadenopathy, rigidity, thyromegaly Carotids: negative: bruit present Thyroid: bilateral: normal size, negative: enlarged, nodule - Respiratory Respiratory: bilateral: CTA, negative: rales, rhonchi, wheezing - Cardiovascular Rhythm: regular Heart sounds: normal: S1, S2 Abnormal Heart Sounds: Absent: systolic murmur, diastolic murmur - Gastrointestinal General gastrointestinal: Present: normal bowel sounds, soft. Absent: disten ded, organomegaly, tenderness - Genitourinary Genitourinary Comment(s): deferred - Integumentary Integumentary: Present: normal turgor. Absent: jaundiced, rash, ulcer - Neurologic Neurologic: Present: CNII-XII intact. Absent: focal deficits - Musculoskeletal Musculoskeletal: Present: gait normal, strength equal bilaterally - Psychiatric Psychiatric: Present: A&O x's 3, appropriate affect, intact judgment & insight - Labs CBC & Chem 7: 02/20/23 07:10 02/20/23 07:10 Labs: Abnormal Lab Results - Last 24 Hours (Table) 02/20/23 02/20/23 Range/Units 07:10 07:10 RBC 3.29 L (3.80-5.40) m/uL Hgb 10.9 L (11.4-16.0) gm/dL Hct 32.9 L (34.0-46.0) % Chloride 108 H (98-107) mmol/L Glucose 107 H (74-99) mg/dL Assessment and Plan Assessment: 1. Severe osteoarthritis right hip; status post elective right total hip arthroplasty - POD #0; patient reports adequate pain control with hydrocodone 10 mg every 6 hours when necessary with IV Dilaudid for breakthrough pain - Patient has received prophylactic dose of antibiotic cefazolin 2 g IV every 8 hours 2 - DVT prophylaxis with aspirin 81 mg twice a day 2. Severe DJD/rheumatoid arthritis ; continue with home anti-inflammatory therapy at time of discharge 3. Vitamin D deficiency; vitamin D 50,000 units weekly 4. Seasonal ALLERGIES; loratadine 10 mg daily DVT prophylaxis; aspirin 81 mg twice a day CODE STATUS; full code
== END 2023-02-20 12:50 | disposition home health service (06) ==
LOC: OR 05:32 → 4SSUR 09:57 → OR 02-20 12:50
PROVIDERS: ATTEND Orthopaedic Surgery
DX: M16.11 Unilateral primary osteoarthritis, right hip (principal); Z85.72 Personal history of non-Hodgkin lymphomas; Z85.038 Personal history of other malignant neoplasm of large intestine; E78.5 Hyperlipidemia, unspecified; Z96.642 Presence of left artificial hip joint; Z98.890 Other specified postprocedural states; Z88.6 Allergy status to analgesic agent; Z88.0 Allergy status to penicillin
CPT/HCPCS: 94760; 97116; 97162; 80048; 85025; 73501; 27130; J0171; J2250; J1100; J0690 ×2; J2405; J3490; J1885; J1170 ×2; 64447

== ENCOUNTER → 2023-12-17 | Outpatient (CLI) | payer MEDICARE, OTHER ==
--- NOTE | 2023-12-19 11:56 | MM ---
Reason for Exam: Screening (asymptomatic). Last mammogram was performed 1 year(s) and 1 month(s) ago. Patient History: Menarche at age 13. First Full-Term at age 26. Postmenopausal. Patient has history of breast feeding. Colorectal cancer, age 57. Patient used Estrogen for 14 years. Patient used Progesterone for 14 years. Patient used Hormonal Contraceptives for 10 years. Maternal grandmother had breast cancer, age 70. Maternal cousin had breast cancer. Maternal cousin had breast cancer. Maternal aunt had breast cancer. Mother had breast cancer. Sister had breast cancer, left, age 79. Risk Values: Estrella 5 year model risk: 6.1%. NCI Lifetime model risk: 14.3%. Prior Study Comparison: 04/19/2020 Bilateral Screening Mammogram, [facility]. 08/13/2021 Bilateral Screening Mammogram, [facility]. 11/10/2022 Bilateral MG 3D screening mammo w/cad, [facility]. Tissue Density: There are scattered areas of fibroglandular density. Findings: Analyzed By CAD. Right breast: There is no suspicious group of microcalcifications or new suspicious mass. Left breast: There is no suspicious group of microcalcifications or new suspicious mass. Overall Assessment: Negative, BI-RAD 1 Management: Screening Mammogram of both breasts in [address] [facility] will attempt to contact patient to return for supplemental views and ultrasound if indicated. Patient should continue monthly self-breast exams. A clinical breast exam by your physician is recommended on an annual basis. This exam should not preclude additional follow-up of suspicious palpable abnormalities. Note on Estrella scores and lifetime risk: 1. A Estrella score greater than 3% is considered moderate risk. If this is the case, consider specialist referral to assess eligibility for a risk reducing agent. 2. If overall lifetime risk for the development of breast cancer is 20% or higher, the patient may qualify for future screening with alternating mammogram and breast MRI. Electronically signed and approved by: Shiva Esteban DO
== END | disposition home or self-care (01) ==
LOC: RADMAMWWP 12:54
PROVIDERS: ATTEND Internal Medicine
DX: Z12.31 Encounter for screening mammogram for malignant neoplasm of breast
CPT/HCPCS: 77063; 77067